=== PATIENT | male | born 1985 | race Two or more races ===

== ENCOUNTER 2017-05-17 10:49 | Day surgery (SDC) | payer BC ==
[~2017-05-17] VITALS: Ht 165.1 cm; Wt 90.0 kg
[2017-05-17] MEDS ORDERED: MORPHINE SULFATE 4 MG/ML, 1ML ONE (11:13)
[2017-05-17] MEDS ORDERED: ONDANSETRON 2MG/ML, 2ML ONE (11:13)
[2017-05-17 11:28] LABS: BASOPHILS % (AUTO) 0 % (0-1); EOSINOPHILS # (AUTO) 0.01 x10^3/uL (0-0.4); EOSINOPHILS % (AUTO) 0 % (1-7); LYMPHOCYTES # (AUTO) 1.19 x10^3/uL (1-3.4); LYMPHOCYTES % (AUTO) 9 % (22-44); MD NO; MEAN CORPUSCULAR HEMOGLOBIN 30.6 pg (27.5-34.5); MEAN CORPUSCULAR HGB CONC 34.2 g/dL (33.2-36.2); MEAN CORPUSCULAR VOLUME 89.3 fL (81-97); MEAN PLATELET VOLUME 8.2 fL (7.4-10.4); MONOCYTES # (AUTO) 0.19 x10^3/uL (0.2-0.8); MONOCYTES % (AUTO) 1 % (2-9); NEUTROPHILS # (AUTO) 12.12 x10^3/uL (1.8-6.8); NEUTROPHILS % (AUTO) 90 % (42-75); PLATELET COUNT 223 x10^3/uL (130-400); RED CELL DISTRIBUTION WIDTH 12.9 % (9.4-14.8)
[2017-05-17] MEDS ORDERED: SODIUM CHLORIDE FLUSH 10ML SYR IVF ONE (11:30)
[2017-05-17] MEDS ORDERED: SODIUM CHLORIDE 0.9% 1,000ML IVBOLUS ONE (11:30)
[2017-05-17] MEDS ORDERED: ONDANSETRON 2MG/ML, 2ML IVPush ONE (11:30)
[2017-05-17] MEDS ORDERED: MORPHINE SULFATE 4 MG/ML, 1ML IVPush PRN ×2 (11:30→15:30)
[2017-05-17] MEDS ORDERED: OMNIPAQUE 350 MG/ML, 100ML BOTTLE ONE ×2 (11:34→11:43)
[2017-05-17 11:39] LABS: ALANINE AMINOTRANSFERASE 40 U/L (12-78); ALBUMIN 3.8 g/dL (3.4-5.0); ANION GAP 6 mmol/L (5-15); CALCIUM 8.3 mg/dL (8.5-10.1); CHLORIDE 105 mmol/L (98-107); CREATININE 0.92 mg/dL (0.7-1.3)
[2017-05-17 11:41] LABS: ALKALINE PHOSPHATASE 93 U/L (45-117); BILIRUBIN,TOTAL 0.5 mg/dL (0.2-1.0); TOTAL PROTEIN 7.5 g/dL (6.4-8.2)
[2017-05-17] MEDS ORDERED: CEFOTETAN PMX 1GM/50ML 50 ML ONE (12:15)
[2017-05-17] MEDS ORDERED: BUPIVACAINE/PF 0.5% ONE (12:30)
[2017-05-17] MEDS ORDERED: EPINEPHRINE 1 MG/ML, 1ML ONE (12:30)
[2017-05-17] MEDS ORDERED: CEFOTETAN PMX 1GM/50ML 50 ML IV ONE (12:30)
[2017-05-17] MEDS ORDERED: FENTANYL PF 250 MCG/5ML ONE (12:38)
[2017-05-17] MEDS ORDERED: PROPOFOL 10 MG/ML, 20ML ONE (12:50)
[2017-05-17] MEDS ORDERED: KETOROLAC 30 MG/1 ML ONE (12:50)
[2017-05-17] MEDS ORDERED: GLYCOPYRROLATE 0.2MG/1ML, 5ML ONE (12:50)
[2017-05-17] MEDS ORDERED: DEXAMETHASONE 4 MG/ML, 1ML ONE (12:50)
[2017-05-17] MEDS ORDERED: NEOSTIGMINE 1 MG/ML, 10ML ONE (12:50)
[2017-05-17] MEDS ORDERED: METRONIDAZOLE PMX 500MG/100ML 100 ML ONE (12:54)
[2017-05-17] MEDS ORDERED: BUPIVACAINE/PF-EPI 0.5% 1:200K IM ONE (13:05)
[2017-05-17] MEDS ORDERED: OXYcodone 5 MG/5 ML ORAL.SOL UDC ONE (13:18)
[2017-05-17] MEDS ORDERED: FENTANYL PF 100 MCG/2ML ONE (13:18)
[2017-05-17] MEDS ORDERED: HYDROmorphone 1 MG/ML, 1ML IV PRN (13:30)
[2017-05-17] MEDS ORDERED: ONDANSETRON 2MG/ML, 2ML IVPush PRN ×2 (13:30→15:30)
[2017-05-17] MEDS ORDERED: LABETALOL 5MG/ML, 20ML IV PRN (13:30)
[2017-05-17] MEDS ORDERED: hydrALAzine 20 MG/ML, 1ML IV PRN (13:30)
[2017-05-17] MEDS ORDERED: OXYcodone 5 MG/5 ML ORAL.SOL UDC PO PRN (13:30)
[2017-05-17] MEDS ORDERED: FENTANYL PF 100 MCG/2ML IV PRN (13:30)
[2017-05-17] MEDS ORDERED: MEPERIDINE/PF 25MG/0.5ML IVPush PRN (13:30)
[2017-05-17] MEDS ORDERED: HYDROmorphone 2 MG/ML, 1ML IV PRN (15:30)
[2017-05-17] MEDS ORDERED: LACTATED RINGERS 1,000 ML IV SCH (15:30)
[2017-05-17] MEDS ORDERED: HYDROcodone/APAP 5/325 TABLET PO PRN (15:30)
[2017-05-17] MEDS ORDERED: OXYcodone/APAP 5/325MG TABLET PO PRN (15:30)
[2017-05-17 20:05] VITALS: BP 108/70
[2017-05-17] MEDS ORDERED: CEPH-368 PO (22:05)
[2017-05-17] MEDS ORDERED: CLIN300C8 PO (22:06)
[2017-05-17] MEDS ORDERED: OXYC-302 PO (22:07)
[2017-05-17 22:28] VITALS: BP 113/67
== END 2017-05-17 23:04 | disposition home or self-care (01) ==
LOC: ED 12:04 → UNDOADMIN 12:09 → EDIP 12:09 → SDC 13:30 → 4NOR 14:03 → EDIP 14:03 → UNDODISIN 23:04 → SDC 23:04
PROVIDERS: ATTEND Surgery
DX: K35.80 Unspecified acute appendicitis (principal); Z82.49 Family history of ischemic heart disease and other diseases of the circulatory system
CPT/HCPCS: 36415; 44970; 74177; 80053; 85025; 88304; 96361; 96374; 96375; 99285; J0171; J1100; J1885; J2405; J2704; J2710; J3010; J3490; J7030; Q9967; S0074